=== PATIENT | female | born 1980 | race African-American/Black ===

== ENCOUNTER 2020-11-28 06:26 | Outpatient (CLI) | payer OTHER ==
[~2020-11-28] VITALS: Ht 154.9 cm; Wt 64.3 kg
--- NOTE | 2020-11-28 07:20 | IPNPDOC ---
Text Note Date of Service The patient was seen on 11/28/20. NOTE Outpatient 40yo LIZY 12/29/2020. 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 Scheduled for repeat 12/11/2020 No distress, appears comfortable Cat I tracing No UC SVE LTC, firm, -3 Discharged home. Routine precautions. Enc to f/u with provider [facility] at [facility]. VS,Fishbone, I+O VS, Fishbone, I+O Vital Signs Date Time Temp Pulse Resp B/P (MAP) Pulse Ox O2 Delivery O2 Flow Rate FiO2 11/28/20 06:50 98.5 18 Aurora Gipson CNM Nov 28, 2020 07:20
== END 2020-11-28 07:29 | disposition home or self-care (01) ==
LOC: M LDO 06:26
PROVIDERS: ATTEND Advanced Practice Midwife
DX: O47.03 False labor before 37 completed weeks of gestation, third trimester (principal); Z3A.35 35 weeks gestation of pregnancy; O34.211 Maternal care for low transverse scar from previous cesarean delivery; O09.523 Supervision of elderly multigravida, third trimester; Z87.51 Personal history of pre-term labor

== ENCOUNTER 2021-05-15 18:33 | Emergency (ER) | payer OTHER ==
[~2021-05-15] VITALS: Ht 154.9 cm; Wt 56.8 kg
[2021-05-15 18:35] VITALS: BP 123/71
== END 2021-05-15 18:48 | disposition left against medical advice (07) ==
LOC: M ED 18:33
DX: Z53.21 Procedure and treatment not carried out due to patient leaving prior to being seen by health care provider (principal)

== ENCOUNTER 2021-12-24 09:17 | Outpatient (CLI) | payer OTHER ==
[~2021-12-24] VITALS: Ht 154.9 cm; Wt 61.3 kg
[2021-12-24 09:42] VITALS: BP 105/61
[2021-12-24] MEDS ORDERED: FOLI400T13 PO (09:52)
[2021-12-24] MEDS ORDERED: IRON1TAB2 PO (09:52)
[2021-12-24] MEDS ORDERED: vitamin d 3 PO (09:52)
[2021-12-24] MEDS ORDERED: PRENTAB9 PO (09:52)
[2021-12-24] MEDS ORDERED: PARO20TA4 PO (09:53)
[2021-12-24] MEDS ORDERED: HOME MED LIST COMPLETE! XX SCH (10:05)
[2021-12-24] MEDS ORDERED: FOLI1TAB11 PO (10:50)
[2021-12-24 12:10] LABS: APPEARANCE, URINE HAZY (CLEAR); BACTERIA, URINE AUTO NEGATIVE (NEGATIVE); BILIRUBIN, URINE AUTO NEGATIVE (NEGATIVE); BLOOD, URINE BLOOD NEGATIVE (NEGATIVE); COLOR, URINE YELLOW (YELLOW); GLUCOSE, URINE (UA) AUTO NEGATIVE (NEGATIVE); KETONE, URINE AUTO NEGATIVE (NEGATIVE); LEUKOCYTE ESTERASE, URINE AUTO NEGATIVE (NEGATIVE); MUCUS, URINE SMALL (NEGATIVE); NITRITE, URINE AUTO NEGATIVE (NEGATIVE); PROTEIN, URINE AUTO NEGATIVE (NEGATIVE); RBC, URINE AUTO 0 /HPF (0-3); SPECIFIC GRAVITY URINE AUTO 1.011 (1.002-1.035); SQUAMOUS EPITHELIAL CELL UR AU 4 /HPF (0-6); UROBILINOGEN, URINE AUTO 0.2 mg/dL (0.0-2.0); WBC, URINE AUTO 1 /HPF (0-3)
[2021-12-24 12:19] VITALS: BP 101/52
== END 2021-12-24 12:33 | disposition home or self-care (01) ==
LOC: M LDO 09:17
PROVIDERS: ATTEND Specialist
DX: O26.892 Other specified pregnancy related conditions, second trimester (principal); R10.30 Lower abdominal pain, unspecified; O34.219 Maternal care for unspecified type scar from previous cesarean delivery; Z3A.26 26 weeks gestation of pregnancy